=== PATIENT | female | born 1950 | race Caucasian/White ===

== ENCOUNTER 2020-08-29 08:20 | Observation (INO) | payer MEDICARE ==
[~2020-08-29] VITALS: Ht 165.1 cm; Wt 67.9 kg
--- NOTE | 2020-08-29 08:58 | NUR ---
PT HAS CO CHEST PAIN FOR 2 MONTHS. WORSENING TODAY, LEFT CHEST. DOES NOT RADIATE. NO N/V. 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 EKG IN TRIAGE.
[2020-08-29] MEDS ORDERED: SODIUM CHLORIDE FLUSH 10ML SYR IVF ONE (09:00)
[2020-08-29] MEDS ORDERED: MAALOX/HYOSCYAMINE/LIDOCAINE 45 ML BTL PO ONE (09:00)
[2020-08-29] MEDS ORDERED: ASPIRIN 81 MG TABLET CHEW PO ONE (09:00)
[2020-08-29] MEDS ORDERED: MAALOX/HYOSCYAMINE/LIDOCAINE 45 ML BTL ONE (09:06)
[2020-08-29] MEDS ORDERED: ASPIRIN 81 MG TABLET CHEW ONE (09:06)
[2020-08-29 09:16] LABS: BASOPHILS % (AUTO) 1 % (0-1); EOSINOPHILS % (AUTO) 3 % (1-7); LYMPHOCYTES % (AUTO) 31 % (22-44); MEAN CORPUSCULAR HEMOGLOBIN 31.9 pg (27.0-34.8); MEAN CORPUSCULAR HGB CONC 33.6 g/dL (32.4-35.8); MONOCYTES % (AUTO) 7 % (2-9); NEUTROPHILS % (AUTO) 57 % (42-75); PLATELET COUNT 128 x10^3/uL (130-400); RED BLOOD COUNT 4.06 x10^6/uL (3.82-5.3); RED CELL DISTRIBUTION WIDTH 14.1 % (9.6-15.2)
--- NOTE | 2020-08-29 09:17 | NUR ---
MEDICATED PER ORDERS. 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
[2020-08-29 09:23] LABS: MD NO
[2020-08-29 09:27] LABS: ALANINE AMINOTRANSFERASE 47 U/L (12-78); ALBUMIN 3.9 g/dL (3.4-5.0); ANION GAP 5 mmol/L (5-15); CALCIUM 9.3 mg/dL (8.5-10.1); CHLORIDE 107 mmol/L (98-107); CREATININE 0.65 mg/dL (0.55-1.02)
[2020-08-29 09:30] LABS: ALKALINE PHOSPHATASE 53 U/L (45-117); BILIRUBIN,TOTAL 0.5 mg/dL (0.2-1.0); TOTAL PROTEIN 7.7 g/dL (6.4-8.2); TROPONIN I < 0.015 ng/mL (0.000-0.045)
--- NOTE | 2020-08-29 10:44 | NUR ---
POC TO BE ADMITTED. IV ESTABLISHED
[2020-08-29] MEDS ORDERED: LEVO100T5 PO (11:03)
[2020-08-29] MEDS ORDERED: SUMA100T4 PO (11:03)
[2020-08-29] MEDS ORDERED: GABA600T7 PO (11:03)
[2020-08-29] MEDS ORDERED: HYDR-2214 PO (11:03)
[2020-08-29] MEDS ORDERED: SITA1TAB5 PO (11:03)
--- NOTE | 2020-08-29 11:08 | NUR ---
REPORT TO CHRISTINE. [employer] FOR TRANSFER
[2020-08-29 12:12] VITALS: BP 95/54
[2020-08-29 13:34] LABS: TROPONIN I < 0.015 ng/mL (0.000-0.045)
[2020-08-29] MEDS ORDERED: ACETAMINOPHEN 325 MG TABLET PO PRN (14:00)
[2020-08-29] MEDS ORDERED: hydrALAzine 20 MG/ML, 1ML IVPush PRN (14:00)
[2020-08-29] MEDS ORDERED: MELATONIN 5 MG TABLET PO PRN (14:00)
[2020-08-29] MEDS ORDERED: DOCUSATE 100 MG CAPSULE PO PRN (14:00)
[2020-08-29] MEDS ORDERED: ONDANSETRON 2MG/ML, 2ML IVPush PRN (14:00)
[2020-08-29] MEDS ORDERED: HYDROcodone/APAP 5/325 TABLET PO PRN (14:00)
[2020-08-29] MEDS ORDERED: ONDANSETRON ODT 4 MG PO PRN (14:00)
[2020-08-29] MEDS ORDERED: LORazepam 0.5MG TABLET PO PRN (14:00)
[2020-08-29] MEDS ORDERED: BISACODYL 10 MG SUPP PR PRN (14:00)
[2020-08-29] MEDS ORDERED: POLYETHYLENE GLYCOL 17 GM PACKET PO PRN (14:00)
[2020-08-29 14:45] LABS: FREE T4 (FREE THYROXINE) 1.17 ng/dL (0.76-1.46)
[2020-08-29] MEDS: HEPARIN 5,000 UNITS/ML, 1ML SQ SCH ×2 (15:59→20:56)
[2020-08-29] MEDS: GABAPENTIN 300 MG CAPSULE PO SCH ×2 (15:59→20:55)
[2020-08-29] MEDS: INSULIN LISPRO 100 UNITS/ML, PEN SQ-INSULIN SCH ×2 (16:00→21:44)
[2020-08-29] MEDS ORDERED: OMNIPAQUE 350 MG/ML, 100ML BOTTLE ONE (17:10)
[2020-08-29 19:24] LABS: MICROSCOPIC NOT IND
[2020-08-29 19:31] LABS: TROPONIN I < 0.015 ng/mL (0.000-0.045)
[2020-08-29 20:28] VITALS: BP 99/51
[2020-08-29] MEDS: PANTOPRAZOLE 40MG TABLET PO SCH (20:55)
[2020-08-30 01:31] VITALS: BP 94/58
[2020-08-30] MEDS: HEPARIN 5,000 UNITS/ML, 1ML SQ SCH ×2 (05:20→14:04)
[2020-08-30 05:37] LABS: BASOPHILS % (AUTO) 1 % (0-1); EOSINOPHILS % (AUTO) 4 % (1-7); LYMPHOCYTES % (AUTO) 42 % (22-44); MEAN CORPUSCULAR HEMOGLOBIN 32.1 pg (27.0-34.8); MEAN CORPUSCULAR HGB CONC 33.9 g/dL (32.4-35.8); MEAN PLATELET VOLUME 9.6 fL (7.4-10.4); MONOCYTES % (AUTO) 8 % (2-9); NEUTROPHILS % (AUTO) 45 % (42-75); PLATELET COUNT 135 x10^3/uL (130-400); RED BLOOD COUNT 4.03 x10^6/uL (3.82-5.3); RED CELL DISTRIBUTION WIDTH 14.5 % (9.6-15.2)
[2020-08-30 05:48] LABS: MD NO
[2020-08-30 05:50] LABS: ALBUMIN 3.6 g/dL (3.4-5.0); ANION GAP 6 mmol/L (5-15); CHLORIDE 109 mmol/L (98-107)
[2020-08-30 05:58] LABS: ALANINE AMINOTRANSFERASE 43 U/L (12-78); ALKALINE PHOSPHATASE 51 U/L (45-117); BILIRUBIN,TOTAL 0.6 mg/dL (0.2-1.0); CALCIUM 9.4 mg/dL (8.5-10.1); CHOL/HDL RATIO 2.3; CHOLESTEROL, TOTAL 103 mg/dL (140-239); CREATININE 0.68 mg/dL (0.55-1.02); HDL CHOL % 44 % (28-40); HDL CHOLESTEROL (DIRECT) 45 mg/dL (40-60); LDL CHOLESTEROL,CALCULATED 17 mg/dL (54-169); LDL/HDL RATIO 0.4 (0.5-3.0); TOTAL PROTEIN 7.4 g/dL (6.4-8.2); TRIGLYCERIDES 206 mg/dL (50-200); VLDL CHOLESTEROL 41 mg/dL (0-25)
[2020-08-30] MEDS ORDERED: ASPIRIN 325 MG TABLET EC PO SCH (06:00)
[2020-08-30 06:58] VITALS: BP 102/67
[2020-08-30] MEDS: INSULIN LISPRO 100 UNITS/ML, PEN SQ-INSULIN SCH ×3 (07:00→18:33)
[2020-08-30] MEDS ORDERED: REGADENOSON 0.4 MG/5 ML SYRINGE ONE (08:04)
[2020-08-30] MEDS ORDERED: LEVOTHYROXINE 100 MCG TABLET PO SCH (09:00)
[2020-08-30] MEDS ORDERED: LINAGLIPTIN 5 MG TAB PO SCH (09:00)
[2020-08-30] MEDS: GABAPENTIN 300 MG CAPSULE PO SCH ×2 (10:50→17:28)
[2020-08-30] MEDS: PANTOPRAZOLE 40MG TABLET PO SCH (10:50)
[2020-08-30 14:00] VITALS: BP 93/58
[2020-08-30] MEDS ORDERED: PANT40TA6 PO (15:56)
== END 2020-08-30 19:47 | disposition home or self-care (01) ==
LOC: ED 10:59 → 5SO 11:23 → SUATTDRO 13:20 → 5SO 13:41 → ED 14:42
PROVIDERS: ADMIT Internal Medicine; ATTEND Internal Medicine
DX: R07.89 Other chest pain (principal); R06.02 Shortness of breath; E11.9 Type 2 diabetes mellitus without complications; E78.5 Hyperlipidemia, unspecified; E05.00 Thyrotoxicosis with diffuse goiter without thyrotoxic crisis or storm; K21.9 Gastro-esophageal reflux disease without esophagitis; G43.909 Migraine, unspecified, not intractable, without status migrainosus; K44.9 Diaphragmatic hernia without obstruction or gangrene; E03.2 Hypothyroidism due to medicaments and other exogenous substances; M54.30 Sciatica, unspecified side; I10 Essential (primary) hypertension; Z87.891 Personal history of nicotine dependence; Z79.899 Other long term (current) drug therapy; Z90.49 Acquired absence of other specified parts of digestive tract
CPT/HCPCS: 36415; 71045; 71275; 78452; 80053; 80061; 81003; 82962; 83036; 83690; 83735; 84439; 84443; 84481; 84484; 85025; 93005; 93017; 93306; 96372; 99285; A9502; G0378; J1644; J1815; J2785; Q9967

== ENCOUNTER → 2020-09-30 | Outpatient (CLI) | payer MEDICARE ==
[~2020-09-30] MED LIST: CHOL10003 PO; GABA600T7 PO; GLYB2.5T2 PO; HYDR-2214 PO; HYDR-3248 PO; LEVO100T5 PO; MULT-658 PO; PANT40TA6 PO; ROSU5TAB PO; SITA1TAB5 PO; SUMA100T4 PO; UBID100C41 PO
== END | disposition home or self-care (01) ==
LOC: STAR 08:24
PROVIDERS: ATTEND Surgery
DX: Z20.822 Contact with and (suspected) exposure to COVID-19 (principal); K44.9 Diaphragmatic hernia without obstruction or gangrene
CPT/HCPCS: U0003; U0005

== ENCOUNTER 2020-10-05 09:47 | Observation (INO) | payer MEDICARE ==
[~2020-10-05] VITALS: Ht 165.1 cm; Wt 73.4 kg
[2020-10-05] MEDS ORDERED: BUPIVACAINE/PF 0.5% ONE (10:56)
[2020-10-05] MEDS ORDERED: EPINEPHRINE 1 MG/ML, 1ML ONE (10:57)
[2020-10-05] MEDS ORDERED: FENTANYL PF 250 MCG/5ML ONE (11:17)
[2020-10-05] MEDS ORDERED: MIDAZOLAM 1 MG/ML, 2ML ONE (11:17)
[2020-10-05] MEDS ORDERED: PROPOFOL 10 MG/ML, 20ML ONE (11:17)
[2020-10-05] MEDS ORDERED: ROCURONIUM 10MG/ML,5ML ONE (11:17)
[2020-10-05] MEDS ORDERED: LIDOCAINE-MPF 2% ,5ML ONE (11:17)
[2020-10-05] MEDS ORDERED: CHLORHEXIDINE 15 ML UDC ONE (11:19)
[2020-10-05] MEDS ORDERED: LACTATED RINGERS 1,000 ML IV SCH (11:30)
[2020-10-05] MEDS ORDERED: CHLORHEXIDINE 15 ML UDC PO ONE (11:30)
[2020-10-05] MEDS ORDERED: ACETAMINOPHEN 325 MG TABLET PO PRN (12:00)
[2020-10-05] MEDS ORDERED: ONDANSETRON 2MG/ML, 2ML IVPush PRN ×2 (12:00→14:00)
[2020-10-05] MEDS ORDERED: HYDROmorphone 1 MG/ML, 1ML INJ IVPush PRN (12:00)
[2020-10-05] MEDS ORDERED: LABETALOL 5MG/ML, 20ML IV PRN (12:00)
[2020-10-05] MEDS ORDERED: OXYcodone 5 MG/5 ML ORAL.SOL UDC PO PRN (12:00)
[2020-10-05] MEDS ORDERED: PROMETHAZINE 25 MG/ML, 1ML IVPush PRN (12:00)
[2020-10-05] MEDS ORDERED: DIAZEPAM 5 MG/ML, 2ML IVPush PRN (12:00)
[2020-10-05] MEDS ORDERED: hydrALAzine 20 MG/ML, 1ML IV PRN (12:00)
[2020-10-05] MEDS ORDERED: DEXAMETHASONE 4 MG/ML, 5ML ONE ×2 (12:27)
[2020-10-05] MEDS ORDERED: CEFAZOLIN 1,000 MG ONE ×2 (12:28)
[2020-10-05] MEDS ORDERED: ONDANSETRON 2MG/ML, 2ML ONE (12:28)
[2020-10-05] MEDS ORDERED: GABAPENTIN 300 MG CAPSULE PO ONE (13:30)
[2020-10-05] MEDS ORDERED: SUGAMMADEX 200 MG/2 ML IVPush ONE (13:36)
[2020-10-05] MEDS ORDERED: FENTANYL PF 100 MCG/2ML ONE (13:56)
[2020-10-05] MEDS ORDERED: OXYcodone 5 MG/5 ML ORAL.SOL UDC ONE (13:57)
[2020-10-05] MEDS: FENTANYL PF 100 MCG/2ML IV PRN ×3 (14:00→14:32)
[2020-10-05] MEDS ORDERED: SUMATRIPTAN 100 MG TABLET PO PRN (14:00)
[2020-10-05] MEDS: IBUPROFEN 800 MG TABLET PO SCH ×2 (14:00→17:36)
[2020-10-05] MEDS ORDERED: MORPHINE SULFATE 4 MG/ML, 1ML IVPush PRN (14:00)
[2020-10-05] MEDS: ACETAMINOPHEN 650 MG/20.3 ML UDC PO SCH ×2 (15:40→21:30)
[2020-10-05] MEDS: OXYcodone 5 MG/5 ML ORAL.SOL UDC PO PRN ×2 (15:41→20:43)
[2020-10-05] MEDS: SODIUM CHLORIDE 0.9% 1,000 ML IV SCH (15:41)
[2020-10-05] MEDS: GABAPENTIN 300 MG CAPSULE PO SCH ×2 (15:41→20:41)
[2020-10-05] MEDS: INSULIN LISPRO 100 UNITS/ML, PEN SQ-INSULIN SCH ×2 (17:32→20:58)
[2020-10-05 20:51] VITALS: BP 122/77
[2020-10-06 00:28] VITALS: BP 128/69
[2020-10-06] MEDS: SODIUM CHLORIDE 0.9% 1,000 ML IV SCH (03:20)
[2020-10-06] MEDS: ACETAMINOPHEN 650 MG/20.3 ML UDC PO SCH ×2 (03:28→09:04)
[2020-10-06] MEDS: OXYcodone 5 MG/5 ML ORAL.SOL UDC PO PRN (03:29)
[2020-10-06 03:59] VITALS: BP 124/72
[2020-10-06] MEDS ORDERED: LEVOTHYROXINE 100 MCG TABLET PO SCH (06:00)
[2020-10-06] MEDS: INSULIN LISPRO 100 UNITS/ML, PEN SQ-INSULIN SCH (07:00)
[2020-10-06 07:35] VITALS: BP 112/65
[2020-10-06] MEDS ORDERED: HEPARIN 5,000 UNITS/ML, 1ML SQ SCH (08:00)
[2020-10-06] MEDS ORDERED: IBUP-1223 PO (08:45)
[2020-10-06] MEDS: GABAPENTIN 300 MG CAPSULE PO SCH (09:03)
[2020-10-06] MEDS: IBUPROFEN 800 MG TABLET PO SCH ×2 (09:03→10:13)
== END 2020-10-06 11:10 | disposition home or self-care (01) ==
LOC: OUT 09:47 → 4NE 15:17 → OUT 23:03 → 4NE 23:23 → DCLOUNGE 10-06 11:02
PROVIDERS: ADMIT Surgery; ATTEND Surgery
DX: K44.9 Diaphragmatic hernia without obstruction or gangrene (principal); K21.9 Gastro-esophageal reflux disease without esophagitis; E11.9 Type 2 diabetes mellitus without complications; E78.5 Hyperlipidemia, unspecified; Z79.899 Other long term (current) drug therapy; Z87.891 Personal history of nicotine dependence
CPT/HCPCS: 43282; 82962; 96360; 96361; C1781; G0378; J0171; J0690; J1100; J1815; J2250; J2405; J2704; J3010; J3490; J7030; J7120; S0020